=== PATIENT | male | born 1990 | race Caucasian/White ===

== ENCOUNTER 2017-01-11 14:39 | Emergency (ER) | payer OTHER ==
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
[2017-01-11] MEDS ORDERED: MOTRIN 600 MG ONE (15:45)
[2017-01-11] MEDS: MOTRIN 600 MG PO ONE (15:46)
--- NOTE | 2017-01-11 17:27 | XRAY ---
or other bone or joint abnormality is seen.
[2017-01-11 17:30] VITALS: O2SAT 96
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
[2017-01-11 18:18] VITALS: BP 125/75; PULSE 72
== END 2017-01-11 18:18 | disposition home or self-care (01) ==
LOC: ED 14:39
DX: S86.912A Strain of unspecified muscle(s) and tendon(s) at lower leg level, left leg, initial encounter (principal); S16.1XXA Strain of muscle, fascia and tendon at neck level, initial encounter; S30.0XXA Contusion of lower back and pelvis, initial encounter; V89.2XXA Person injured in unspecified motor-vehicle accident, traffic, initial encounter
CPT/HCPCS: 72040; 72170; 72220; 73560; A9270-GY

== ENCOUNTER 2019-10-20 10:30 | Emergency (ER) | payer BC, OTHER ==
--- NOTE | 2019-10-20 10:52 | ERPHSYRPT ---
- History of Present Illness Time Seen by Provider: 10/20/19 10:50 Source: patient Exam Limitations: no limitations Patient Subjective Stated Complaint: pt here for pain to right shoulder since last night after falling on slip in slide. Triage Nursing Assessment: pt alert, walked in, resp easy, skin w/d/p. has pain to right shoulder with some amt of swelling,has strong radial pulse, unable to lift arm Physician History: pt here for pain to right shoulder since last night after falling on slip in slide. Occurred: yesterday Method of Injury: fell, sports injury Quality: constant Severity of Pain-Max: moderate Severity of Pain-Current: moderate Extremities Pain Location: shoulder: right Modifying Factors: Improves With: nothing Associated Symptoms: none Allergies/Adverse Reactions: bee pollen Allergy (Verified 10/20/19 10:41) Hx Tetanus, Diphtheria Vaccination/Date Given: Yes (up to date) Hx Influenza Vaccination/Date Given: No Hx Pneumococcal Vaccination/Date Given: No Immunizations Up to Date: Yes Travel Risk - International Travel Have you traveled outside of the country in past 3 weeks: No - Coronavirus Screening Are you exhibiting any of the following symptoms?: No Close contact with a COVID-19 positive Pt in past 14-21 Days: No - Review of Systems Constitutional: No Symptoms Eyes: No Symptoms Ears, Nose, & Throat: No Symptoms Respiratory: No Symptoms Cardiac: No Symptoms Abdominal/Gastrointestinal: No Symptoms Genitourinary Symptoms: No Symptoms Musculoskeletal: Fall, Joint Pain (right shoulder) - Past Medical History Pertinent Past Medical History: No - Past Surgical History Past Surgical History: Yes Other Surgical History: tubes in ears - Social History Smoking Status: Current some day smoker Exposure to second hand smoke: Yes Drug Use: none Patient Lives Alone: No - Nursing Vital Signs Nursing Vital Signs: Pain Scale Pain Intensity 7 - Physical Exam General Appearance: no apparent distress Eyes, Ears, Nose, Throat Exam: normal ENT inspection Neck Exam: normal inspection Cardiovascular/Respiratory Exam: chest non-tender Abdominal Exam: non-tender Shoulder Exam: limited ROM, soft tissue tenderness (right shoulder), No deformity Elbow/Forearm Exam: normal inspection - Course Nursing assessment & vital signs reviewed: Yes - Radiology Exams Shoulder X-ray Interpretation: Reviewed by me, Negative, No Fracture, No Subluxation Ordered Tests: Active Orders 24 hr Category Date Time Status SHOULDER Stat Exams 10/20/19 10:49 Taken Medication Summary Discontinued Medications Generic Name Dose Route Start Last Admin Trade Name Grace PRN Reason Stop Dose Admin Ketorolac Tromethamine 60 mg 10/20/19 10:56 10/20/19 11:01 Toradol 30 Mg Injection IM 10/20/19 10:57 60 mg STAT ONE Administration Ketorolac Tromethamine Confirm 10/20/19 11:00 Toradol 30 Mg Injection Administered 10/20/19 11:01 Dose 60 mg .ROUTE .STK-MED ONE - Progress Progress: improved, pain not gone completely Counseled pt/family regarding: diagnosis, need for follow-up, rad results - Departure Departure Disposition: Home Clinical Impression: Sprain of shoulder, right Qualifiers: Encounter type: initial encounter Shoulder sprain type: other part of shoulder region Qualified Code(s): S43.491A - Other sprain of right shoulder joint, initial encounter Condition: Stable Critical Care Time: No Instructions: Shoulder Sprain (DC) Forms: Work/School Release Form Prescriptions: Naproxen 375 mg [Naprosyn 375 mg] 375 mg PO Q8H #30 tablet
[2019-10-20] MEDS ORDERED: TORAdol 30 mg Injection IM ONE (10:56)
[2019-10-20] MEDS ORDERED: TORAdol 30 mg Injection ONE (11:00)
[2019-10-20 11:34] VITALS: BP 135/95; PULSE 84; O2SAT 98
--- NOTE | 2019-10-20 21:36 | XRAY ---
Indication: Pain following fall. Comparison: None 3 view right shoulder obtained. No bony, articular, or soft tissue abnormalities.
== END 2019-10-20 11:43 | disposition home or self-care (01) ==
LOC: ED 10:30
DX: S43.491A Other sprain of right shoulder joint, initial encounter (principal); W18.39XA Other fall on same level, initial encounter; M25.511 Pain in right shoulder
CPT/HCPCS: 73030; 96372; 99284; J1885